=== PATIENT | male | born 1940 | race Caucasian/White ===

== ENCOUNTER → 2017-11-14 | Outpatient (REF) | payer MEDICARE, OTHER | LOC: M LAB REF 15:43 | DX: L08.9 Local infection of the skin and subcutaneous tissue, unspecified (principal) | CPT/HCPCS: 87186 ==

== ENCOUNTER → 2019-04-25 | Outpatient (REF) | payer MEDICARE, OTHER | LOC: M SFHCADAM 14:43 | PROVIDERS: ATTEND Physician Assistant | DX: R74.8 Abnormal levels of other serum enzymes (principal); R73.01 Impaired fasting glucose; Z53.8 Procedure and treatment not carried out for other reasons ==

== ENCOUNTER → 2019-05-14 | Outpatient (CLI) | payer MEDICARE, BC, OTHER | LOC: M RAD 08:26 | PROVIDERS: ATTEND Physician Assistant | DX: R74.8 Abnormal levels of other serum enzymes (principal); Z53.9 Procedure and treatment not carried out, unspecified reason ==

== ENCOUNTER → 2019-05-27 | Outpatient (CLI) | payer MEDICARE, BC, OTHER ==
--- NOTE | 2019-05-27 09:36 | REP ---
RIGHT UPPER QUADRANT ULTRASOUND: Real-time sonographic evaluation of the right upper quadrant was performed. Gallbladder demonstrates no evidence of intraluminal sludge or calculi, wall thickening or pericholecystic fluid. There is no intrahepatic or extrahepatic biliary dilatation, the common bile duct measuring 3 mm. The liver demonstrates somewhat increased echotexture suggesting a mild degree of fibrofatty infiltration. No gross liver or pancreatic mass is seen. The pancreas is not well seen due to overlying bowel gas. Right kidney demonstrates no hydronephrosis with normal size 11.7 cm in length. IMPRESSION: Possible mild fibrofatty infiltration of the liver. Otherwise negative right upper quadrant ultrasound. Electronically Signed by Jose Hinds MD 05/27/2019 03:47 P
== END ==
LOC: M RAD 07:12
PROVIDERS: ATTEND Physician Assistant
DX: R74.8 Abnormal levels of other serum enzymes (principal)

== ENCOUNTER → 2019-12-04 | Outpatient (CLI) | payer MEDICARE, BC, OTHER ==
--- NOTE | 2019-12-04 14:11 | REP ---
CT CHEST WITHOUT CONTRAST: LOW-DOSE SCREENING EXAM. HISTORY: Nicotine dependence. No comparison chest CT study. CT FINDINGS: Digital preliminary grain shipper radiograph demonstrates a bipolar pacemaker. Cardiomegaly is observed. Extensive vascular calcification is seen. There is mitral valvular calcification. There are two noncalcified pulmonary nodules in the left upper lobe. The largest of these is a 5 mm solid nodule anteriorly on page 49 of 110 in series 201 of today's study. There is a 4 mm nodule in the left upper lobe on page 53. No other significant pulmonary nodule is appreciated. No lung mass lesion is seen. IMPRESSION: Lung-RADS category [address] study recommended in 1 year. Calcifications are noted incidentally in the region of the mitral valve. Electronically Signed by Gee Vega MD 12/04/2019 05:14 P
== END ==
LOC: M RAD 09:08
PROVIDERS: ATTEND Physician Assistant
DX: Z87.891 Personal history of nicotine dependence (principal); F17.200 Nicotine dependence, unspecified, uncomplicated

== ENCOUNTER → 2020-07-02 | Outpatient (REF) | payer MEDICARE, OTHER | LOC: M LAB REF 11:04 | PROVIDERS: ATTEND Dermatology | DX: C44.319 Basal cell carcinoma of skin of other parts of face (principal) ==

== ENCOUNTER → 2020-09-02 | Outpatient (CLI) | payer MEDICARE, BC, OTHER | LOC: M LABSMTC 10:14 | PROVIDERS: ATTEND Internal Medicine Cardiovascular Disease | DX: Z11.52 Encounter for screening for COVID-19 (principal) ==

== ENCOUNTER → 2020-11-04 | Outpatient (REF) | payer MEDICARE, OTHER ==
[2020-11-04 13:10] LABS: APPEARANCE, URINE CLEAR (CLEAR); BACTERIA, URINE AUTO NEGATIVE (NEGATIVE); BILIRUBIN, URINE AUTO NEGATIVE (NEGATIVE); BLOOD, URINE BLOOD NEGATIVE (NEGATIVE); COLOR, URINE YELLOW (YELLOW); GLUCOSE, URINE (UA) AUTO NEGATIVE (NEGATIVE); KETONE, URINE AUTO NEGATIVE (NEGATIVE); LEUKOCYTE ESTERASE, URINE AUTO NEGATIVE (NEGATIVE); MUCUS, URINE SMALL (NEGATIVE); NITRITE, URINE AUTO NEGATIVE (NEGATIVE); PROTEIN, URINE AUTO NEGATIVE (NEGATIVE); RBC, URINE AUTO 1 /HPF (0-3); SPECIFIC GRAVITY URINE AUTO 1.016 (1.002-1.035); SQUAMOUS EPITHELIAL CELL UR AU 0 /HPF (0-6); UROBILINOGEN, URINE AUTO 0.2 mg/dL (0.0-2.0); WBC, URINE AUTO 1 /HPF (0-3)
== END ==
LOC: M SFHCADAM 10:18
PROVIDERS: ATTEND Physician Assistant
DX: D72.829 Elevated white blood cell count, unspecified (principal); Z79.899 Other long term (current) drug therapy
CPT/HCPCS: 81001; 87086; G0463

== ENCOUNTER → 2021-04-19 | Outpatient (CLI) | payer MEDICARE, BC, OTHER ==
--- NOTE | 2021-04-19 09:30 | REP ---
INDICATION: NICOTINE DEPENDENCE. COMPARISON: 12/04/2019 also low-dose screening CT TECHNIQUE: Axial noncontrast images from the thoracic inlet to the upper abdomen using low-dose lung screening technique (LDCT). As per the protocol only lung window images were sent to the read station for interpretation. FINDINGS: There are in fact 3 nodules in the left lung upper lobe which are completely stable. There is a single nodule in the right lower lobe which is completely stable. No new abnormal nodules, masses, or opacities have developed. Grossly, the mediastinum and pulmonary nicki are unchanged. Grossly, the imaged upper abdomen and imaged osseous structures are unchanged. IMPRESSION: Stable lung rads category [address] low-dose screening CT examination of the chest. According to the revised Fleischner society criteria yearly screening is recommended if clinically relevant. <Electronically signed by Chai Zhao > 04/19/21 [id number]
== END ==
LOC: M RAD 08:29
PROVIDERS: ATTEND Physician Assistant
DX: Z12.2 Encounter for screening for malignant neoplasm of respiratory organs (principal); F17.211 Nicotine dependence, cigarettes, in remission

== ENCOUNTER → 2021-07-15 | Outpatient (CLI) | payer MEDICARE, BC, OTHER ==
[~2021-07-15] MED LIST: ASPI1CHW3 PO; ATOR80TA59 PO; CARV12.5 PO; ENAL-36 PO; HYDR500C PO; KP F1200 PO; NO ITAB PO; VITA500C24 PO
== END ==
LOC: M RAD 08:54
PROVIDERS: ATTEND Internal Medicine Hematology & Oncology
DX: D45 Polycythemia vera (principal)

== ENCOUNTER → 2022-07-07 | Outpatient (CLI) | payer MEDICARE, BC, OTHER | LOC: M RAD 08:39 | PROVIDERS: ATTEND Physician Assistant | DX: Z12.2 Encounter for screening for malignant neoplasm of respiratory organs (principal); F17.211 Nicotine dependence, cigarettes, in remission; R91.8 Other nonspecific abnormal finding of lung field ==

== ENCOUNTER → 2023-07-19 | Outpatient (CLI) | payer MEDICARE, OTHER ==
[~2023-07-19] MED LIST changes: +ASPI-655 PO; -ASPI1CHW3 PO; -ENAL-36 PO; +ENAL1TAB50 PO
== END ==
LOC: M RAD 11:42
PROVIDERS: ATTEND Physician Assistant
DX: F17.210 Nicotine dependence, cigarettes, uncomplicated (principal); I73.9 Peripheral vascular disease, unspecified

== ENCOUNTER → 2023-07-31 | Outpatient (CLI) | payer MEDICARE, BC, OTHER | LOC: M RAD 13:52 | PROVIDERS: ATTEND Physician Assistant | DX: I73.9 Peripheral vascular disease, unspecified (principal) ==

== ENCOUNTER → 2023-11-01 | Outpatient (CLI) | payer MEDICARE, BC | LOC: M RAD 08:21 | PROVIDERS: ATTEND Physician Assistant | DX: Z12.2 Encounter for screening for malignant neoplasm of respiratory organs (principal); F17.210 Nicotine dependence, cigarettes, uncomplicated ==

== ENCOUNTER → 2023-12-28 | Outpatient (REF) | payer MEDICARE, BC | LOC: M SFHCADAM 14:19 | PROVIDERS: ATTEND Physician Assistant | DX: R74.8 Abnormal levels of other serum enzymes (principal); D75.89 Other specified diseases of blood and blood-forming organs ==

== ENCOUNTER → 2024-07-03 | Outpatient (REF) | payer MEDICARE, BC ==
[~2024-07-03] MED LIST changes: +HYDR500C3 PO
== END ==
LOC: M SFHCADAM 16:34
PROVIDERS: ATTEND Physician Assistant
DX: F17.211 Nicotine dependence, cigarettes, in remission (principal); I25.10 Atherosclerotic heart disease of native coronary artery without angina pectoris; I73.9 Peripheral vascular disease, unspecified; R73.03 Prediabetes; K75.81 Nonalcoholic steatohepatitis (NASH); Z95.2 Presence of prosthetic heart valve

== ENCOUNTER → 2024-11-05 | Outpatient (CLI) | payer MEDICARE, BC ==
[~2024-11-05] MED LIST changes: -HYDR500C PO; +HYDR500C20 PO
== END ==
LOC: M RAD 14:36
PROVIDERS: ATTEND Physician Assistant
DX: F17.211 Nicotine dependence, cigarettes, in remission (principal)

== ENCOUNTER → 2025-02-06 | Outpatient (CLI) | payer MEDICARE, BC ==
[~2025-02-06] MED LIST changes: -ASPI-655 PO; +ASPI-737 PO
== END ==
LOC: M RAD 08:51
PROVIDERS: ATTEND Physician Assistant
DX: R74.8 Abnormal levels of other serum enzymes (principal); R22.2 Localized swelling, mass and lump, trunk; K76.0 Fatty (change of) liver, not elsewhere classified